=== PATIENT | male | born 1970 | race Caucasian/White ===

== ENCOUNTER 2016-05-12 13:48 | Inpatient (IN) | payer OTHER ==
[~2016-05-12] VITALS: Ht 185.4 cm; Wt 104.9 kg
[~2016-05-12 13:48] MED LIST: PERC5TAB8 OR; PROZ40CA OR; TRAM50TA2 OR
[2016-05-12] MEDS ORDERED: NICOTINE 21MG/24HR 1 EA TRANSDERMAL As Ordered ONE (14:30)
[2016-05-12 14:48] LABS: MEAN CORPUSCULAR HEMOGLOBIN 28.9 pg (27.0-33.0); MEAN CORPUSCULAR HGB CONC 33.5 g/dl (32.0-36.5); MEAN CORPUSCULAR VOLUME 86.5 fl (80.0-96.0); RED CELL DISTRIBUTION WIDTH 12.6 % (11.5-14.5); WHITE BLOOD COUNT 7.5 K/mm3 (4.0-10.0)
[2016-05-12 15:00] LABS: CONTROL LINE INT CTR LINE PRESENT; METHADONE URINE NEGATIVE (NEGATIVE); TRICYCLIC ANTIDEPRESS URINE NEGATIVE (NEGATIVE)
[2016-05-12 15:20] LABS: ALBUMIN 3.9 GM/DL (3.2-5.2); ALBUMIN/GLOBULIN RATIO 1.34 (1.00-1.93); ALKALINE PHOSPHATASE 69 U/L (45-117); ALT/SGPT 21 U/L (12-78); ANION GAP 8 MEQ/L (8-16); AST/SGOT 17 U/L (15-37); BILIRUBIN,DIRECT < 0.1 MG/DL (0.0-0.2); BILIRUBIN,TOTAL 0.2 MG/DL (0.2-1.0); BLOOD UREA NITROGEN 11 MG/DL (7-18); CALCIUM LEVEL 8.5 MG/DL (8.5-10.1); CARBON DIOXIDE LEVEL 28 MEQ/L (21-32); CHLORIDE LEVEL 106 MEQ/L (98-107); CREATININE FOR GFR 0.96 MG/DL (0.70-1.30); GLOMERULAR FILTRATION RATE > 60.0 (>60); GLUCOSE, FASTING 98 MG/DL (70-105); SODIUM LEVEL 142 MEQ/L (136-145); TOTAL PROTEIN 6.8 GM/DL (6.4-8.2)
[2016-05-13] MEDS ORDERED: amLODIPine 5 MG TAB As Ordered ONE (08:20)
[2016-05-13] MEDS ORDERED: LISINOPRIL 10 MG TAB As Ordered ONE (08:20)
[2016-05-13] MEDS ORDERED: ESCITALOPRAM OXALATE 10 MG TAB (LEXAPRO) As Ordered ONE (08:20)
--- NOTE | 2016-05-13 14:56 | EDDOCDS ---
Physician Documentation [facility] Name: Tomás Soares Age: 45 yrs Sex: Male : 1970 Arrival Date: 05/12/2016 Time: 13:48 Bed OBSERVATION Private MD: No Pcp Disposition: 05/13/16 14:56 Hospitalization ordered by Juvencio Sylvester for Inpatient Admission. Preliminary diagnosis is Major depressive disorder, recurrent, unspecified. - Bed requested for Admit. - Status is Inpatient Admission. mk4 - Condition is Stable. Historical: - Allergies: SULFA (SULFONAMIDES); - Home Meds: 1. lisinopril 40 mg Oral tab 1 tab once daily 2. escitalopram oxalate 20 mg oral tab 1 tab once daily 3. amlodipine 5 mg Oral tab 1 tab once daily 4. albuterol sulfate 90 mcg/actuation Inhl HFAA 2 puffs every 4-6 hours 5. Suboxone 8-2 mg SL subl 1 tab once daily (Last dose: 05/12/2016 08:00) - PMHx: Bertrand's Palsy; COPD; Depression; heroin addiction (Clean for 2 years); Hypertension; - PSHx: Cervical Fusion (August 2011); Appendectomy; - Social history: Smoking status: Patient uses tobacco products, heavy tobacco smoker. No barriers to communication noted, The patient speaks fluent Romanian, Speaks appropriately for age. - Family history: Not pertinent. - : The pt / caregiver states he / she is not on anticoagulants. Home medication list is obtained from pill bottles. - Exposure Risk Screening:: None identified. Vital Signs: 05/12 13:51 BP 162 / 87; Pulse 70; Resp 18; Temp 97.4(O); Pulse Ox 97% on R/A; Weight 108.86 kg / jrd 240 lbs (R); Height 6 ft. 1 in. (185.42 cm) (R); Pain 0/10; 19:47 BP 140 / 76; Pulse 62; Resp 16; Temp 96.7(O); Pulse Ox 99% on R/A; slm 05/13 05:09 BP 132 / 77; Pulse 57; Resp 16; Temp 96.2(O); Pulse Ox 96% on R/A; Pain 0/10; slm 14:40 BP 146 / 71; Pulse 61; Resp 18; Temp 98.2; Pulse Ox 98% ; mk4 05/12 13:51 Body Mass Index 31.66 (108.86 kg, 185.42 cm) jrd MDM: 05/12 14:21 Consult PFS/PSA/Distance Learning Administrator ordered. ke 14:21 Consult PFS/PSA/Distance Learning Administrator: Patient's case requires discussion with on-call ke Psychiatrist ordered. 14:21 PSA/PFS to call Nursing Equipment Coordinator, to enter patient data on [place] Safe [place] if patient ke involuntarily admitted or transferred for SI or HI ordered. 14:21 Confirm accurate psychiatric medication list and times of last dosage ordered. ke 14:21 Detain Pt Until Medically/PFS Cleared ordered. ke 14:21 Nicotine Patch 21 mg/24 hr 1 applic Transdermal once ordered. ke 14:22 Acetaminophen Level Ordered. EDMS 14:22 Basic Metabolic Profile Ordered. EDMS 14:22 Complete Blood Count Ordered. EDMS 14:22 Drug Eval Toxicology ED Only Ordered. EDMS 14:22 Ethyl Alcohol (ethanol) Ordered. EDMS 14:22 Liver Profile Ordered. EDMS 14:22 Salicylate Level Ordered. EDMS 14:22 Thyroid Stimulating Hormone Ordered. EDMS 15:29 Acetaminophen Level Reviewed. ke 15:29 Complete Blood Count Reviewed. ke 15:29 Salicylate Level Reviewed. ke 15:29 Thyroid Stimulating Hormone Reviewed. ke 15:29 Basic Metabolic Profile Reviewed. ke 15:29 Drug Eval Toxicology ED Only Reviewed. ke 15:29 Ethyl Alcohol (ethanol) Reviewed. ke 15:29 Liver Profile Reviewed. ke 15:29 Consult PFS/PSA/Distance Learning Administrator complete. ca 15:59 REGULAR DIET PLASTIC PARKER+DIET ordered. EDMS 15:59 Consult PFS/PSA/Distance Learning Administrator: Patient's case requires discussion with on-call ca Psychiatrist complete. 16:00 PSA/PFS to call Nursing Equipment Coordinator, to enter patient data [place] Safe [place] if patient ca involuntarily admitted or transferred for SI or HI complete. 16:16 Financial registration complete. zo 16:19 [facility] [place] into [employer] and attached to record. zo 23:29 The patient has been medically cleared for psychiatric evaluation, admission and/or ke transfer. Awaiting: The patient is awaiting psychiatric admission or transfer. All labs and investigations have been reviewed. The vital signs have been reviewed. The patient remains medically cleared for disposition. Psychiatric assistant professor of history. 05/13 04:55 REGULAR DIET PLASTIC PARKER+DIET ordered. EDMS 07:17 Lisinopril 40 mg PO once ordered. br1 07:17 amLODIPine 5 mg PO once ordered. br1 07:18 Escitalopram 20 mg PO once ordered. br1 07:19 Awaiting: The patient is awaiting psychiatric admission or transfer. All labs and br1 investigations have been reviewed. The vital signs have been reviewed. The patient remains medically cleared for disposition. 10:50 REGULAR DIET PLASTIC PARKER+DIET ordered. EDMS 14:28 Admit to [facility]: ordered. EDMS 14:43 E Legal paperwork was scanned into [employer] and attached to record. lucrecia Administered Medications: 05/12 14:40 Drug: Nicotine 1 applic [nicotine 21 mg/24 hr daily transdermal patch (1 patches)] kc3 Route: Transdermal; Site: right upper arm; 05/13 08:25 Drug: Lisinopril 40 mg [lisinopril 10 mg tablet (4 tabs)] Route: PO; mk4 08:25 Drug: amLODIPine 5 mg [amlodipine 5 mg tablet (1 tabs)] Route: PO; mk4 08:25 Drug: Escitalopram 20 mg Route: PO; mk4 Signatures: Dispatcher [employer] EDMS Santa Yousif, PSA PSA Garret Cortez, PSA PSA Mario Grijalva, FIRE EXTINGUISHER INSTALLER FIRE EXTINGUISHER INSTALLER Tyrone Oliveira RN RN mlb1 Héctor Zhong Brian, MD MD br1 Michelle Lepe RN RN mk4 Avis Ibanez,RN RN kc3 The chart was reviewed and I authenticate all verbal orders and agree with the evaluation and treatment provided.Corrections: (The following items were deleted from the chart) 14:06 05/12 13:56 Home Meds: Suboxone 8-2 mg SL subl 1 tab once daily; gonzalo mk4 Attachments: 16:19 [facility] Payment Agreement zo MTDD
--- NOTE | 2016-05-13 14:57 | EDDOCDS ---
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 Test: BARBITURATES URINE; Value: NEGATIVE; Range: NEGATIVE; Status: F Test: BENZODIAZEPINES URINE; Value: NEGATIVE; Range: NEGATIVE; Status: F Test: CANNABINOIDS URINE; Value: NEGATIVE; Range: NEGATIVE; Status: F Test: COCAINE METABOLITE URINE; Value: NEGATIVE; Range: NEGATIVE; Status: F Test: METHADONE URINE; Value: NEGATIVE; Range: NEGATIVE; Status: F Test: OPIATES URINE; Value: NEGATIVE; Range: NEGATIVE; Status: F Test: TRICYCLIC ANTIDEPRESS URINE; Value: NEGATIVE; Range: NEGATIVE; Status: F Test Note: ; ALL PRESUMPTIVE POSITIVE FINDINGS ARE UNCONFIRMED NORMAL VALUES THRESHOLD IN NG/ML AMPHETAMINES 1000 METHAMPHETAMINES 1000 BARBITURATES 300 BENZODIAZEPINES 300 CANNABINOIDS (THC) 50 COCAINE METABOLITE 300 METHADONE 300 OPIATES 300 PHENCYCLIDINE 25 TRICYCLIC ANTIDEPRESSANTS 1000 RESULTS ARE FOR MEDICAL PURPOSES ONLY. ALL URINE SPECIMENS WILL BE SAVED FOR 3 DAYS. IF CONFIRMATION OF A PRESUMPTIVE POSTIVE SCREEN RESULT IS DESIRED, CALL CHEMISTRY ([phone]) AND REQUEST URINE TO BE SENT TO REFERENCE LAB. FOR A LIST OF CLOSELY RELATED COMPOUNDS PLEASE CALL THE LAB. Lab Order: Ethyl Alcohol (ethanol); SPEC'M 05/12/16 14:36 Test: ETHYL ALCOHOL (ETHANOL); Value: 0.003; Range: 0.000-0.010; Units: %; Status: F Lab Order: Liver Profile; SPEC'M 05/12/16 14:36 Test: AST/SGOT; Value: 17; Range: 15-37; Units: U/L; Status: F Test: ALT/SGPT; Value: 21; Range: 12-78; Units: U/L; Status: F Test: ALKALINE PHOSPHATASE; Value: 69; Range: 45-117; Units: U/L; Status: F Test: BILIRUBIN,TOTAL; Value: 0.2; Range: 0.2-1.0; Units: MG/DL; Status: F Test: BILIRUBIN,DIRECT; Value: < 0.1; Range: 0.0-0.2; Units: MG/DL; Status: F Test: TOTAL PROTEIN; Value: 6.8; Range: 6.4-8.2; Units: GM/DL; Status: F Test: ALBUMIN; Value: 3.9; Range: 3.2-5.2; Units: GM/DL; Status: F Test: ALBUMIN/GLOBULIN RATIO; Value: 1.34; Range: 1.00-1.93; Status: F Lab Order: Salicylate Level; SPEC'M 05/12/16 14:36 Test: SALICYLATE LEVEL; Value: 3.8; Range: 5.0-30.0; Abnormal: Below low normal; Units: MG/DL; Status: F Lab Order: Thyroid Stimulating Hormone; SPEC'M 05/12/16 14:36 Test: THYROID STIMULATING HORMONE; Value: 0.175; Range: 0.358-3.740; Abnormal: Below low normal; Units: uIU/ML; Status: F Outcome: 05/12 22:31 No special radiology studies were completed. [facility] 05/13 11:00 Discharge Assessment: Patient awake, alert and oriented x 3. No cognitive and/or mk4 functional deficits noted. Patient verbalized understanding of disposition instructions. Patient awake and alert. Discharge Assessment: patient administered narcotics - no. The following High Risk Discharge criteria are identified: None. Admitted to Psych accompanied by tech, via wheelchair, with chart. Condition: good Condition: stable. 14:56 Decision to Hospitalize by Provider. mk4 14:56 Patient left the ED. mk4 Signatures: Makayla Rachel RN RN kmg1 Johnson, Bruce, RN RN bcj Anderson, Cathy, PSA PSA ca Baxter, Renee, ARGENIS PSA Garret Rodriguez, PSA PSA Jose Eduardo [place] Security Aide Securpjf Ventura, Mario Darden, HEALTH ACTUARY HEALTH ACTUARY Tyrone Oliveira RN RN mlb1 Héctor Zhong Brian, MD MD br1 Harvindre De La O dpLinda José,BRICK YARD HAND BRICK YARD HAND slm Michelle Lepe, RN RN mk4 Yaniv Robb, TAIL EDGER TAIL EDGER jrd Avis IbanezRN RN kc3 Corrections: (The following items were deleted from the chart) 14:06 05/12 13:56 Home Meds: Suboxone 8-2 mg SL subl 1 tab once daily; mlb1 mk4 MTDD
[2016-05-13 15:08] VITALS: BP 133/75
[2016-05-13] MEDS ORDERED: traZODone 50 MG TAB PO PRN (16:00)
[2016-05-13] MEDS ORDERED: MOM 30ML SUSPENSION UDC PO PRN (16:00)
[2016-05-13] MEDS ORDERED: ACETAMINOPHEN TAB 650MG DOSE (2X325MG) PO PRN (16:00)
[2016-05-13] MEDS ORDERED: MAALOX 30 ML SUSP *UDC PO PRN (16:00)
[2016-05-13] MEDS ORDERED: ALBUTEROL 90 MCG/ACT 8GM HFA INHALER INH PRN (16:30)
[2016-05-13] MEDS: BUPRENORPHINE/NALOXONE 8-2MG SUBLINGUAL TABLET(SUBOXONE) SL SCH (16:40)
[2016-05-13] MEDS: NICOTINE 21MG/24HR 1 EA TRANSDERMAL TD SCH (16:40)
[2016-05-14 06:40] VITALS: BP 116/65
[2016-05-14] MEDS: NICOTINE 21MG/24HR 1 EA TRANSDERMAL TD SCH (08:49)
[2016-05-14] MEDS: BUPRENORPHINE/NALOXONE 8-2MG SUBLINGUAL TABLET(SUBOXONE) SL SCH (08:49)
[2016-05-14] MEDS: ESCITALOPRAM OXALATE 10 MG TAB (LEXAPRO) PO SCH (08:49)
[2016-05-14] MEDS: amLODIPine 5 MG TAB PO SCH (08:49)
[2016-05-14] MEDS: LISINOPRIL 40 MG TAB PO SCH (08:49)
--- NOTE | 2016-05-14 10:35 | HPEPDOC ---
Medical History and Physical Date of Admission May 13, 2016 at 14:55 History and Physical PCP: Dr Lakesha Fairchild- [facility]. ATTENDING: Dr. Elvin Griffiths HPI:45yoM admitted to [facility] for MDD, being medically examined today. No acute medical complaints today. Denies any fevers, chills, weakness, fatigue, [place], CP, SOB, cough, palpitations, abdominal pain, N/V/D or changes in bowel or bladder habits. PMHx: COPD Bertrand's palsy Depression Hypertension H/O Substance use-Suboxone as per Dr Fairchild. ISTOP reference # [id number] PSHX: Cervical fusion 08/26- Dr Rosado Appendectomy SOCHX: Resides in: [place] Marital Status: Kids: 6 Employment: Unemployed Tobacco use: One pack per day ETOH: Denies Illicit Drugs: History of cocaine, heroin. Patient states quit 2013 IV Drug Use: Heroin Tattoos done unprofessionally: Denies HIV/hepatitis screening 2013. Negative per patient. FAMHX: Mother: Alive, well Father: Alive, unknown Siblings: One brother, one sister Alive, well Children: Alive, asthma Unexpected deaths due to medical reasons: None. ROS: As noted in HPI, otherwise 11pt ROS of systems reviewed and unremarkable PE: GEN: 45yoM, appears stated age. Well-nourished, well developed. No acute distress. Alert and oriented x 3. Pleasant, interactive. HEENT: Normocephalic, atraumatic. Pupils are equal, round, and reactive to light. Extraocular movements are intact. No nystagmus appreciated. Sclera are nonicteric. Conjunctiva without injection. Nose midline. Nasal turbinates without bogginess. EACs both patent BL. TMs both visualized and redman with good cone of light, no bulging or erythema. No facial asymmetry. Moist mucous membranes. Dentition fair. Pharynx pink and moist, no cobblestoning. Neck supple , trachea midline. No lymphadenopathy or thyromegaly appreciated. CHEST: Regular rate and rhythm, +S1, +S2 LUNGS: Clear to auscultation bilaterally. No wheezes, rales, or rhonchi. Breathing appears symmetric and easy. Patient is speaking in full sentences. No accessory muscle use. ABD: Round, soft, non-tender, non-distended. +Bowel sounds throughout. No rebound or guarding. No costovertebral angle tenderness. EXT: Pulses 2+ bilaterally dorsalis pedis and radial. No lower extremity edema appreciated. SKIN: Tok, dry, warm. Capillary refill <2sec. No rashes. NEURO: Alert and oriented x 3. Cranial nerves III-XII are intact. No focal deficits appreciated. EKG: pending. A&P: 45yoM admitted to [facility] for MDD 1. Psych. Plan per Psychiatry. Obtain baseline EKG to assure the safety of psychiatric medications as they can prolong the QT interval. 2. Nicotine dependence. Patch available. 3. Hypertension. Continue lisinopril 40 mg daily, amlodipine 5 mg daily. 4. Follow up with PCP on discharge. 5. H/O Substance use. Per psychiatry. Patient remains on Suboxone 8-2 milligrams sublingual daily. ISTOP reference #[id number] indicates last filled date of 04/25/16 dispensed #30. 6. COPD. Continue albuterol 2 puffs every 4 hours as needed. 7. Abnormal TSH. Recheck TSH and free T4 in a.m. 8. Staff member present at exam, [employer] Ed. Vital Signs Vital Signs Label Value Date Time Patient Temperature 96.0 degrees F 05/14/16 0640 Temperature Source Tympanic 05/14/16 0640 Pulse 52 05/14/16 0640 Respiratory Rate 16 bpm 05/14/16 0640 Blood Pressure Assessment 116/65 (82) 05/14/16 0640 Laboratory Data Labs 24H Item Value Date Time White Blood Count 7.5 K/mm3 05/12/16 1436 Red Blood Count 4.77 M/mm3 05/12/16 1436 Hemoglobin 13.8 g/dl L 05/12/16 1436 Hematocrit 41.3 % L 05/12/16 1436 Mean Corpuscular Volume 86.5 fl 05/12/16 1436 Mean Corpuscular Hemoglobin 28.9 pg 05/12/16 1436 Mean Corpuscular Hemoglobin Concent 33.5 g/dl 05/12/16 1436 Red Cell Distribution Width 12.6 % 05/12/16 1436 Platelet Count 263 k/mm3 05/12/16 1436 Sodium Level 142 MEQ/L 05/12/16 1436 Potassium Level 4.0 MEQ/L 05/12/16 1436 Chloride Level 106 MEQ/L 05/12/16 1436 Carbon Dioxide Level 28 MEQ/L 05/12/16 1436 Anion Gap 8 MEQ/L 05/12/16 1436 Blood Urea Nitrogen 11 MG/DL 05/12/16 1436 Creatinine 0.96 MG/DL 05/12/16 1436 Glomerular Filtration Rate > 60.0 05/12/16 1436 Fasting Glucose 98 MG/DL 05/12/16 1436 Calcium Level 8.5 MG/DL 05/12/16 1436 Total Bilirubin 0.2 MG/DL 05/12/16 1436 Direct Bilirubin < 0.1 MG/DL 05/12/16 1436 Aspartate Amino Transf (AST/SGOT) 17 U/L 05/12/16 1436 Alanine Aminotransferase (ALT/SGPT) 21 U/L 05/12/16 1436 Alkaline Phosphatase 69 U/L 05/12/16 1436 Total Protein 6.8 GM/DL 05/12/16 1436 Albumin 3.9 GM/DL 05/12/16 1436 Albumin/Globulin Ratio 1.34 05/12/16 1436 Thyroid Stimulating Hormone (TSH) 0.175 uIU/ML L 05/12/16 1436 Salicylates Level 3.8 MG/DL L 05/12/16 1436 Urine Opiates Screen NEGATIVE 05/12/16 1439 Urine Methadone Screen NEGATIVE 05/12/16 1439 Acetaminophen Level < 2.0 UG/ML L 05/12/16 1436 Urine Barbiturates Screen NEGATIVE 05/12/16 1439 Urine Tricyclic Antidepressants NEGATIVE 05/12/16 1439 Urine Amphetamines Screen NEGATIVE 05/12/16 1439 Urine Benzodiazepines Screen NEGATIVE 05/12/16 1439 Urine Cocaine Metabolite Screen NEGATIVE 05/12/16 1439 Urine Cannabinoids Screen NEGATIVE 05/12/16 1439 Ethyl Alcohol Level 0.003 % 05/12/16 1436 Home Medications Scheduled Fluoxetine Hcl (Prozac) 40 Mg Cap 30 MG OR DAILY Oxycodone/Acetaminophen (Percocet) 1 Tab Tab 1 TAB OR Q4HP Tramadol Hcl (Tramadol Hcl) 50 Mg Tab 50 MG OR Q8HP Allergies Coded Allergies: No Known Allergies (Verified , 09/20/02) Flaquita Garcia May 14, 2016 10:34
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
[2016-05-14 18:00] VITALS: BP 121/66
--- NOTE | 2016-05-14 22:39 | ECGEPIP ---
Stationary ECG Study [facility] Test Date: 2016-05-14 Pat Name: MEI FERRIS Department: Room: [place] [address] Gender: M Director Of Channel Marketing: MARICRUZ : 1970 Requested By: Flaquita Garcia Order Number: [id number] Reading MD: Elvin Griffiths Measurements Intervals [place] Rate: 62 P: 69 DE: 164 QRS: -29 QRSD: 110 T: 31 QT: 388 QTc: 396 Interpretive Statements SINUS RHYTHM Intraventricular conduction delay BORDERLINE LEFT AXIS DEVIATION Nonspecific ST-T wave abnormalities No significant change when compared to prior tracing of 08-15-15 Electronically Signed On 05-14-2016 22:38:58 EST by Elvin Griffiths
[2016-05-15 06:35] VITALS: BP 134/71
[2016-05-15 07:19] LABS: FREE T4 0.92 NG/DL (0.76-1.46)
[2016-05-15] MEDS ORDERED: NICO21PAT TD (08:29)
[2016-05-15 08:36] VITALS: BP 127/74
[2016-05-15] MEDS: BUPRENORPHINE/NALOXONE 8-2MG SUBLINGUAL TABLET(SUBOXONE) SL SCH (08:36)
[2016-05-15] MEDS: NICOTINE 21MG/24HR 1 EA TRANSDERMAL TD SCH (08:36)
[2016-05-15] MEDS: LISINOPRIL 40 MG TAB PO SCH (08:36)
[2016-05-15] MEDS: ESCITALOPRAM OXALATE 10 MG TAB (LEXAPRO) PO SCH (08:36)
[2016-05-15] MEDS: amLODIPine 5 MG TAB PO SCH (08:36)
[2016-05-15] MEDS ORDERED: SUBO8MIS SL (12:29)
[2016-05-15] MEDS ORDERED: LEXA1TAB2 PO (12:29)
[2016-05-15] MEDS ORDERED: NORV5TAB PO (12:29)
[2016-05-15] MEDS ORDERED: PRINIVIL PO (12:29)
[2016-05-15] MEDS ORDERED: ALBU17IN INH (12:29)
--- NOTE | 2016-05-15 15:57 | EDDOCDS ---
Physician Documentation [facility] Name: Tomás Soares Age: 45 yrs Sex: Male : 1970 Arrival Date: 05/12/2016 Time: 13:48 Bed OBSERVATION Private MD: No Pcp Disposition: 05/13/16 14:56 Hospitalization ordered by Juvencio Sylvester for Inpatient Admission. Preliminary diagnosis is Major depressive disorder, recurrent, unspecified. - Bed requested for Admit. - Status is Inpatient Admission. mk4 - Condition is Stable. Historical: - Allergies: SULFA (SULFONAMIDES); - Home Meds: 1. lisinopril 40 mg Oral tab 1 tab once daily 2. escitalopram oxalate 20 mg oral tab 1 tab once daily 3. amlodipine 5 mg Oral tab 1 tab once daily 4. albuterol sulfate 90 mcg/actuation Inhl HFAA 2 puffs every 4-6 hours 5. Suboxone 8-2 mg SL subl 1 tab once daily (Last dose: 05/12/2016 08:00) - PMHx: Bertrand's Palsy; COPD; Depression; heroin addiction (Clean for 2 years); Hypertension; - PSHx: Cervical Fusion (August 2011); Appendectomy; - Social history: Smoking status: Patient uses tobacco products, heavy tobacco smoker. No barriers to communication noted, The patient speaks fluent Surinamese, Speaks appropriately for age. - Family history: Not pertinent. - : The pt / caregiver states he / she is not on anticoagulants. Home medication list is obtained from pill bottles. - Exposure Risk Screening:: None identified. Vital Signs: 05/12 13:51 BP 162 / 87; Pulse 70; Resp 18; Temp 97.4(O); Pulse Ox 97% on R/A; Weight 108.86 kg / jrd 240 lbs (R); Height 6 ft. 1 in. (185.42 cm) (R); Pain 0/10; 19:47 BP 140 / 76; Pulse 62; Resp 16; Temp 96.7(O); Pulse Ox 99% on R/A; slm 05/13 05:09 BP 132 / 77; Pulse 57; Resp 16; Temp 96.2(O); Pulse Ox 96% on R/A; Pain 0/10; slm 14:40 BP 146 / 71; Pulse 61; Resp 18; Temp 98.2; Pulse Ox 98% ; mk4 05/12 13:51 Body Mass Index 31.66 (108.86 kg, 185.42 cm) jrd MDM: 05/12 14:21 Consult PFS/PSA/Computer Graphic Artist ordered. ke 14:21 Consult PFS/PSA/Computer Graphic Artist: Patient's case requires discussion with on-call ke Psychiatrist ordered. 14:21 PSA/PFS to call Nursing Lead Level Designer, to enter patient data on [place] Safe Act if patient ke involuntarily admitted or transferred for SI or HI ordered. 14:21 Confirm accurate psychiatric medication list and times of last dosage ordered. ke 14:21 Detain Pt Until Medically/PFS Cleared ordered. ke 14:21 Nicotine Patch 21 mg/24 hr 1 applic Transdermal once ordered. ke 14:22 Acetaminophen Level Ordered. EDMS 14:22 Basic Metabolic Profile Ordered. EDMS 14:22 Complete Blood Count Ordered. EDMS 14:22 Drug Eval Toxicology ED Only Ordered. EDMS 14:22 Ethyl Alcohol (ethanol) Ordered. EDMS 14:22 Liver Profile Ordered. EDMS 14:22 Salicylate Level Ordered. EDMS 14:22 Thyroid Stimulating Hormone Ordered. EDMS 15:29 Acetaminophen Level Reviewed. ke 15:29 Complete Blood Count Reviewed. ke 15:29 Salicylate Level Reviewed. ke 15:29 Thyroid Stimulating Hormone Reviewed. ke 15:29 Basic Metabolic Profile Reviewed. ke 15:29 Drug Eval Toxicology ED Only Reviewed. ke 15:29 Ethyl Alcohol (ethanol) Reviewed. ke 15:29 Liver Profile Reviewed. ke 15:29 Consult PFS/PSA/Computer Graphic Artist complete. ca 15:59 REGULAR DIET PLASTIC PARKER+DIET ordered. EDMS 15:59 Consult PFS/PSA/Computer Graphic Artist: Patient's case requires discussion with on-call ca Psychiatrist complete. 16:00 PSA/PFS to call Nursing Lead Level Designer, to enter patient data on [place] Safe [place] if patient ca involuntarily admitted or transferred for SI or HI complete. 16:16 Financial registration complete. zo 16:19 [facility] Payment Agreement was scanned into [employer] and attached to record. zo 23:29 The patient has been medically cleared for psychiatric evaluation, admission and/or ke transfer. Awaiting: The patient is awaiting psychiatric admission or transfer. All labs and investigations have been reviewed. The vital signs have been reviewed. The patient remains medically cleared for disposition. Psychiatric airplane inspector. 05/13 04:55 REGULAR DIET PLASTIC PARKER+DIET ordered. EDMS 07:17 Lisinopril 40 mg PO once ordered. br1 07:17 amLODIPine 5 mg PO once ordered. br1 07:18 Escitalopram 20 mg PO once ordered. br1 07:19 Awaiting: The patient is awaiting psychiatric admission or transfer. All labs and br1 investigations have been reviewed. The vital signs have been reviewed. The patient remains medically cleared for disposition. 10:50 REGULAR DIET PLASTIC PARKER+DIET ordered. EDMS 14:28 Admit to [facility]: ordered. EDMS 14:43 E Legal paperwork was scanned into [employer] and attached to record. lucrecia Administered Medications: 05/12 14:40 Drug: Nicotine 1 applic [nicotine 21 mg/24 hr daily transdermal patch (1 patches)] kc3 Route: Transdermal; Site: right upper arm; 05/13 08:25 Drug: Lisinopril 40 mg [lisinopril 10 mg tablet (4 tabs)] Route: PO; mk4 08:25 Drug: amLODIPine 5 mg [amlodipine 5 mg tablet (1 tabs)] Route: PO; mk4 08:25 Drug: Escitalopram 20 mg Route: PO; mk4 Signatures: Dispatcher [employer] EDMS Santa Yousif, PSA PSA Garret Cortez, PSA PSA Mario Grijalva, SHOE REPAIR COBBLER SHOE REPAIR COBBLER Tryone Oliveira RN RN mlb1 Héctor Zhong Brian, MD MD br1 Michelle Lepe RN RN mk4 Avis Ibanez,RN RN kc3 The chart was reviewed and I authenticate all verbal orders and agree with the evaluation and treatment provided.Corrections: (The following items were deleted from the chart) 14:06 05/12 13:56 Home Meds: Suboxone 8-2 mg SL subl 1 tab once daily; gonzalo mk4 Attachments: 16:19 [facility] Payment Agreement zo Chart Complete MTDD
--- NOTE | 2016-05-15 15:57 | EDDOCDS ---
Physician Documentation [facility] Name: Tomás Soares Age: 45 yrs Sex: Male : 1970 Arrival Date: 05/12/2016 Time: 13:48 Bed OBSERVATION Private MD: No Pcp Disposition: 05/13/16 14:56 Hospitalization ordered by Juvencio Sylvester for Inpatient Admission. Preliminary diagnosis is Major depressive disorder, recurrent, unspecified. - Bed requested for Admit. - Status is Inpatient Admission. mk4 - Condition is Stable. Historical: - Allergies: SULFA (SULFONAMIDES); - Home Meds: 1. lisinopril 40 mg Oral tab 1 tab once daily 2. escitalopram oxalate 20 mg oral tab 1 tab once daily 3. amlodipine 5 mg Oral tab 1 tab once daily 4. albuterol sulfate 90 mcg/actuation Inhl HFAA 2 puffs every 4-6 hours 5. Suboxone 8-2 mg SL subl 1 tab once daily (Last dose: 05/12/2016 08:00) - PMHx: Bertrand's Palsy; COPD; Depression; heroin addiction (Clean for 2 years); Hypertension; - PSHx: Cervical Fusion (August 2011); Appendectomy; - Social history: Smoking status: Patient uses tobacco products, heavy tobacco smoker. No barriers to communication noted, The patient speaks fluent [place], Speaks appropriately for age. - Family history: Not pertinent. - : The pt / caregiver states he / she is not on anticoagulants. Home medication list is obtained from pill bottles. - Exposure Risk Screening:: None identified. Vital Signs: 05/12 13:51 BP 162 / 87; Pulse 70; Resp 18; Temp 97.4(O); Pulse Ox 97% on R/A; Weight 108.86 kg / jrd 240 lbs (R); Height 6 ft. 1 in. (185.42 cm) (R); Pain 0/10; 19:47 BP 140 / 76; Pulse 62; Resp 16; Temp 96.7(O); Pulse Ox 99% on R/A; slm 05/13 05:09 BP 132 / 77; Pulse 57; Resp 16; Temp 96.2(O); Pulse Ox 96% on R/A; Pain 0/10; slm 14:40 BP 146 / 71; Pulse 61; Resp 18; Temp 98.2; Pulse Ox 98% ; mk4 05/12 13:51 Body Mass Index 31.66 (108.86 kg, 185.42 cm) jrd MDM: 05/12 14:21 Consult PFS/PSA/Firebreak Cutter ordered. ke 14:21 Consult PFS/PSA/Firebreak Cutter: Patient's case requires discussion with on-call ke Psychiatrist ordered. 14:21 PSA/PFS to call Nursing Respiratory Care Assistant, to enter patient data on [place] Safe [place] if patient ke involuntarily admitted or transferred for SI or HI ordered. 14:21 Confirm accurate psychiatric medication list and times of last dosage ordered. ke 14:21 Detain Pt Until Medically/PFS Cleared ordered. ke 14:21 Nicotine Patch 21 mg/24 hr 1 applic Transdermal once ordered. ke 14:22 Acetaminophen Level Ordered. EDMS 14:22 Basic Metabolic Profile Ordered. EDMS 14:22 Complete Blood Count Ordered. EDMS 14:22 Drug Eval Toxicology ED Only Ordered. EDMS 14:22 Ethyl Alcohol (ethanol) Ordered. EDMS 14:22 Liver Profile Ordered. EDMS 14:22 Salicylate Level Ordered. EDMS 14:22 Thyroid Stimulating Hormone Ordered. EDMS 15:29 Acetaminophen Level Reviewed. ke 15:29 Complete Blood Count Reviewed. ke 15:29 Salicylate Level Reviewed. ke 15:29 Thyroid Stimulating Hormone Reviewed. ke 15:29 Basic Metabolic Profile Reviewed. ke 15:29 Drug Eval Toxicology ED Only Reviewed. ke 15:29 Ethyl Alcohol (ethanol) Reviewed. ke 15:29 Liver Profile Reviewed. ke 15:29 Consult PFS/PSA/Firebreak Cutter complete. ca 15:59 REGULAR DIET PLASTIC PARKER+DIET ordered. EDMS 15:59 Consult PFS/PSA/Firebreak Cutter: Patient's case requires discussion with on-call ca Psychiatrist complete. 16:00 PSA/PFS to call Nursing Respiratory Care Assistant, to enter patient data [place] Safe [place] if patient ca involuntarily admitted or transferred for SI or HI complete. 16:16 Financial registration complete. zo 16:19 [facility] [place] was [place] into [employer] and attached to record. zo 23:29 The patient has been medically cleared for psychiatric evaluation, admission and/or ke transfer. Awaiting: The patient is awaiting psychiatric admission or transfer. All labs and investigations have been reviewed. The vital signs have been reviewed. The patient remains medically cleared for disposition. 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 05/13 04:55 REGULAR DIET PLASTIC PARKER+DIET ordered. EDMS 07:17 Lisinopril 40 mg PO once ordered. br1 07:17 amLODIPine 5 mg PO once ordered. br1 07:18 Escitalopram 20 mg PO once ordered. br1 07:19 Awaiting: The patient is awaiting psychiatric admission or transfer. All labs and br1 investigations have been reviewed. The vital signs have been reviewed. The patient remains medically cleared for disposition. 10:50 REGULAR DIET PLASTIC PARKER+DIET ordered. EDMS 14:28 Admit to [facility]: ordered. EDMS 14:43 E Legal paperwork was scanned into [employer] and attached to record. lucrecia Administered Medications: 05/12 14:40 Drug: Nicotine 1 applic [nicotine 21 mg/24 hr daily transdermal patch (1 patches)] kc3 Route: Transdermal; Site: right upper arm; 05/13 08:25 Drug: Lisinopril 40 mg [lisinopril 10 mg tablet (4 tabs)] Route: PO; mk4 08:25 Drug: amLODIPine 5 mg [amlodipine 5 mg tablet (1 tabs)] Route: PO; mk4 08:25 Drug: Escitalopram 20 mg Route: PO; mk4 Signatures: Dispatcher [employer] EDMS Santa Yousif, PSA PSA Garret Cortez, PSA PSA Mario Grijalva, ADDING MACHINE SERVICER ADDING MACHINE SERVICER Tyrone Oliveira RN RN mlb1 Héctor Zhong Brian, MD MD br1 Michelle Lepe RN RN mk4 Avis Ibanez,RN RN kc3 The chart was reviewed and I authenticate all verbal orders and agree with the evaluation and treatment provided.Corrections: (The following items were deleted from the chart) 14:06 05/12 13:56 Home Meds: Suboxone 8-2 mg SL subl 1 tab once daily; gonzalo mk4 Attachments: 16:19 [facility] Payment Agreement zo Chart Complete MTDD
--- NOTE | 2016-05-15 15:57 | EDDOCDS ---
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 AMPHETAMINES LEVEL URINE; Value: NEGATIVE; Range: NEGATIVE; Status: F Test: BARBITURATES URINE; Value: NEGATIVE; Range: NEGATIVE; Status: F Test: BENZODIAZEPINES URINE; Value: NEGATIVE; Range: NEGATIVE; Status: F Test: CANNABINOIDS URINE; Value: NEGATIVE; Range: NEGATIVE; Status: F Test: COCAINE METABOLITE URINE; Value: NEGATIVE; Range: NEGATIVE; Status: F Test: METHADONE URINE; Value: NEGATIVE; Range: NEGATIVE; Status: F Test: OPIATES URINE; Value: NEGATIVE; Range: NEGATIVE; Status: F Test: TRICYCLIC ANTIDEPRESS URINE; Value: NEGATIVE; Range: NEGATIVE; Status: F Test Note: ; ALL PRESUMPTIVE POSITIVE FINDINGS ARE UNCONFIRMED NORMAL VALUES THRESHOLD IN NG/ML AMPHETAMINES 1000 METHAMPHETAMINES 1000 BARBITURATES 300 BENZODIAZEPINES 300 CANNABINOIDS (THC) 50 COCAINE METABOLITE 300 METHADONE 300 OPIATES 300 PHENCYCLIDINE 25 TRICYCLIC ANTIDEPRESSANTS 1000 RESULTS ARE FOR MEDICAL PURPOSES ONLY. ALL URINE SPECIMENS WILL BE SAVED FOR 3 DAYS. IF CONFIRMATION OF A PRESUMPTIVE POSTIVE SCREEN RESULT IS DESIRED, CALL CHEMISTRY ([phone]) AND REQUEST URINE TO BE SENT TO REFERENCE LAB. FOR A LIST OF CLOSELY RELATED COMPOUNDS PLEASE CALL THE LAB. Lab Order: Ethyl Alcohol (ethanol); SPEC'M 05/12/16 14:36 Test: ETHYL ALCOHOL (ETHANOL); Value: 0.003; Range: 0.000-0.010; Units: %; Status: F Lab Order: Liver Profile; SPEC'M 05/12/16 14:36 Test: AST/SGOT; Value: 17; Range: 15-37; Units: U/L; Status: F Test: ALT/SGPT; Value: 21; Range: 12-78; Units: U/L; Status: F Test: ALKALINE PHOSPHATASE; Value: 69; Range: 45-117; Units: U/L; Status: F Test: BILIRUBIN,TOTAL; Value: 0.2; Range: 0.2-1.0; Units: MG/DL; Status: F Test: BILIRUBIN,DIRECT; Value: < 0.1; Range: 0.0-0.2; Units: MG/DL; Status: F Test: TOTAL PROTEIN; Value: 6.8; Range: 6.4-8.2; Units: GM/DL; Status: F Test: ALBUMIN; Value: 3.9; Range: 3.2-5.2; Units: GM/DL; Status: F Test: ALBUMIN/GLOBULIN RATIO; Value: 1.34; Range: 1.00-1.93; Status: F Lab Order: Salicylate Level; SPEC'M 05/12/16 14:36 Test: SALICYLATE LEVEL; Value: 3.8; Range: 5.0-30.0; Abnormal: Below low normal; Units: MG/DL; Status: F Lab Order: Thyroid Stimulating Hormone; SPEC'M 05/12/16 14:36 Test: THYROID STIMULATING HORMONE; Value: 0.175; Range: 0.358-3.740; Abnormal: Below low normal; Units: uIU/ML; Status: F Outcome: 05/12 22:31 No special radiology studies were completed. [facility] 05/13 11:00 Discharge Assessment: Patient awake, alert and oriented x 3. No cognitive and/or mk4 functional deficits noted. Patient verbalized understanding of disposition instructions. Patient awake and alert. Discharge Assessment: patient administered narcotics - no. The following High Risk Discharge criteria are identified: None. Admitted to Psych accompanied by tech, via wheelchair, with chart. Condition: good Condition: stable. 14:56 Decision to Hospitalize by Provider. mk4 14:56 Patient left the ED. mk4 Signatures: Makayla Rachel RN RN kmg1 Johnson, Bruce, RN RN bcj Anderson, Cathy, PSA PSA ca Baxter, Renee, ARGENIS PSA Garret Rodriguez, PSA PSA Jose Eduardo [place] Security Aide Christopher Ventura, Mario Darden, CUSTODIAL FOREMAN CUSTODIAL FOREMAN Tyrone Oliveira RN RN mlb1 Héctor Zhong Brian, MD MD br1 Harvinder De La O dpm Linda Rosen,BELTING CUTTER BELTING CUTTER slm Michelle Lepe, RN RN mk4 Yaniv Robb, ANESTHESIOLOGY PHYSICIAN ANESTHESIOLOGY PHYSICIAN jrd Avis IbanezRN RN kc3 Corrections: (The following items were deleted from the chart) 14:06 05/12 13:56 Home Meds: Suboxone 8-2 mg SL subl 1 tab once daily; mlb1 mk4 Chart Complete MTDD
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
== END 2016-05-15 12:45 | disposition home or self-care (01) | DRG 754 ==
LOC: M ED 13:48 → M PSY 14:54
PROVIDERS: ADMIT Psychiatry & Neurology Psychiatry; ATTEND Psychiatry & Neurology Psychiatry
DX: F32.9 Major depressive disorder, single episode, unspecified (principal); J44.9 Chronic obstructive pulmonary disease, unspecified; I10 Essential (primary) hypertension; F11.21 Opioid dependence, in remission; G51.0 Bell's palsy; F17.200 Nicotine dependence, unspecified, uncomplicated

== ENCOUNTER → 2017-05-02 | Outpatient (CLI) | payer OTHER ==
[2017-05-02 19:51] LABS: HEMATOCRIT 42.1 % (42.0-52.0); MEAN CORPUSCULAR HEMOGLOBIN 27.9 pg (27.0-33.0); MEAN CORPUSCULAR HGB CONC 33.3 g/dl (32.0-36.5); PLATELET COUNT, AUTOMATED 311 10^3/uL (150-450); RED BLOOD COUNT 5.01 10^6/uL (4.30-6.10); RED CELL DISTRIBUTION WIDTH 12.7 % (11.5-14.5); WHITE BLOOD COUNT 7.4 10^3/uL (4.0-10.0)
[2017-05-02 20:22] LABS: ALBUMIN 3.9 GM/DL (3.2-5.2); ALBUMIN/GLOBULIN RATIO 1.22 (1.00-1.93); ALKALINE PHOSPHATASE 86 U/L (45-117); ALT/SGPT 28 U/L (12-78); ANION GAP 8 MEQ/L (8-16); AST/SGOT 18 U/L (7-37); BILIRUBIN,TOTAL 0.3 MG/DL (0.2-1.0); BLOOD UREA NITROGEN 13 MG/DL (7-18); CALCIUM LEVEL 8.7 MG/DL (8.5-10.1); CARBON DIOXIDE LEVEL 32 MEQ/L (21-32); CHLORIDE LEVEL 103 MEQ/L (98-107); CREATININE FOR GFR 0.94 MG/DL (0.70-1.30); GLOMERULAR FILTRATION RATE > 60.0 (>60); GLUCOSE, FASTING 126 MG/DL (70-100); POTASSIUM SERUM 4.6 MEQ/L (3.5-5.1); SODIUM LEVEL 143 MEQ/L (136-145); TOTAL PROTEIN 7.1 GM/DL (6.4-8.2)
[2017-05-05 12:25] LABS: HIV 1&2 SCREEN CENTAUR NEGATIVE (NEGATIVE)
[2017-05-05 13:00] LABS: HEPATITIS C VIRUS ABY INDEX > 11.0 INDEX (<0.8)
[2017-05-08 14:12] LABS: HCV RNA NAA QUALITATIVE Positive (Negative)
== END ==
LOC: M WUC 18:35
DX: F11.20 Opioid dependence, uncomplicated (principal); I10 Essential (primary) hypertension
CPT/HCPCS: 80053

== ENCOUNTER → 2017-12-04 | Outpatient (REF) | payer MEDICAID ==
[2017-12-04 15:05] LABS: ALBUMIN/GLOBULIN RATIO 1.21 (1.00-1.93); ALKALINE PHOSPHATASE 69 U/L (45-117); ALT/SGPT 69 U/L (12-78); ANION GAP 7 MEQ/L (8-16); AST/SGOT 30 U/L (7-37); BILIRUBIN,TOTAL 0.6 MG/DL (0.2-1.0); BLOOD UREA NITROGEN 13 MG/DL (7-18); CALCIUM LEVEL 8.6 MG/DL (8.5-10.1); CARBON DIOXIDE LEVEL 28 MEQ/L (21-32); CHLORIDE LEVEL 105 MEQ/L (98-107); CHOLESTEROL LEVEL 156 MG/DL (<200); CHOLESTEROL RISK RATIO 4.875 (<5); CREATININE FOR GFR 0.98 MG/DL (0.70-1.30); GLOMERULAR FILTRATION RATE > 60.0 (>60); GLUCOSE, FASTING 147 MG/DL (70-100); HDL CHOLESTEROL 32 MG/DL (>40); LDL CHOLESTEROL 86 MG/DL (<100); NON-HDL-C 124 MG/DL; POTASSIUM SERUM 4.5 MEQ/L (3.5-5.1); SODIUM LEVEL 140 MEQ/L (136-145); TOTAL PROTEIN 7.3 GM/DL (6.4-8.2); TRIGLYCERIDES LEVEL 190 MG/DL (<150)
[2017-12-04 15:33] LABS: ESTIMATED AVERAGE GLUCOSE 117 MG/DL (60-110); HEMOGLOBIN A1c 5.7 %
[2017-12-05 13:24] LABS: HEPATITIS C VIRUS ABY INDEX > 11.0 INDEX (<0.8)
[2017-12-08 08:20] LABS: HCV RNA NAA QUALITATIVE Positive (Negative)
== END ==
LOC: M LAB REF 12:28
DX: E11.65 Type 2 diabetes mellitus with hyperglycemia (principal); B18.2 Chronic viral hepatitis C

== ENCOUNTER → 2017-12-05 | Outpatient (REF) | payer MEDICAID | LOC: M LAB REF 12:58 | DX: B18.2 Chronic viral hepatitis C (principal) ==

== ENCOUNTER → 2019-10-30 | Emergency (ER) | payer MEDICAID ==
[~2019-10-30] MED LIST changes: +ALBU17IN INH; +LEXA1TAB2 PO; +NICO21PAT TD; +NORV5TAB PO; +PHENobarbitaL 30 MG TAB As Ordered ONE; +PRINIVIL PO; +SUBO8MIS SL
== END | disposition home or self-care (01) ==
LOC: M ED 23:26
DX: F11.10 Opioid abuse, uncomplicated (principal); Z88.2 Allergy status to sulfonamides

== ENCOUNTER 2020-10-13 18:00 | Emergency (ER) | payer MEDICAID, OTHER, SELFPAY ==
[~2020-10-13] VITALS: Ht 177.8 cm; Wt 115.7 kg
[~2020-10-13 18:00] MED LIST changes: -PHENobarbitaL 30 MG TAB As Ordered ONE
[2020-10-13 21:09] LABS: BASO % 0.1 % (0.0-1.0); HEMATOCRIT 42.5 % (42.0-52.0); HEMOGLOBIN 14.8 g/dl (13.5-17.5); LYMPH # 2.7 10^3/uL (1.5-5.0); LYMPH % 16.3 % (24.0-44.0); MEAN CORPUSCULAR HEMOGLOBIN 29.5 pg (27.0-33.0); MEAN CORPUSCULAR HGB CONC 34.8 g/dl (32.0-36.5); MEAN CORPUSCULAR VOLUME 84.7 fl (80.0-96.0); MONO # 1.2 10^3/uL (0.0-0.8); MONO % 7.5 % (2.0-8.0); NEUTROPHILS # 12.4 10^3/uL (1.5-8.5); NEUTROPHILS % 75.6 % (36.0-66.0); PLATELET COUNT, AUTOMATED 281 10^3/uL (150-450); RED BLOOD COUNT 5.02 10^6/uL (4.30-6.10); WHITE BLOOD COUNT 16.5 10^3/uL (4.0-10.0)
[2020-10-13 21:25] LABS: ACETONE/KETONE 5.54 MG/DL (<2.81); ALBUMIN 4.2 GM/DL (3.2-5.2); BILIRUBIN,DIRECT 0.3 MG/DL (0.0-0.2); BILIRUBIN,TOTAL 1.1 MG/DL (0.2-1.0); TOTAL PROTEIN 8.1 GM/DL (6.4-8.2)
[2020-10-13] MEDS ORDERED: KETOROLAC 30 MG/ML 1ML VIAL IV ONE (22:10)
[2020-10-13] MEDS ORDERED: ONDANSETRON 4MG/2ML VIAL IV ONE (22:10)
[2020-10-13] MEDS ORDERED: HumuLIN R (REGULAR) INSULIN (NovoLIN R) **100U/ML** PER UNIT IV STA (22:12)
[2020-10-13] MEDS ORDERED: ISOVUE-370 76% 100ML VIAL As Ordered ONE (22:39)
[2020-10-13 22:41] LABS: VENOUS BASE EXCESS 0.4 (-2.0-2.0); VENOUS O2 SATURATION 98.6 % (60.0-80.0); VENOUS PARTIAL PRESSURE CO2 35.8 mmHg (38.0-50.0); VENOUS PARTIAL PRESSURE O2 112.8 mmHg (30.0-50.0); VENOUS PH 7.445 UNITS (7.330-7.430); VENOUS STANDARD HCO3 24.9 MEQ/L; VENOUS TOTAL CO2 25.1 MEQ/L (24.0-28.0)
[2020-10-14] MEDS ORDERED: METF500T13 PO (01:34)
[2020-10-14] MEDS ORDERED: FLOM0.4C39 PO (01:34)
[2020-10-14] MEDS ORDERED: metFORMIN (GLUCOPHAGE) 500MG TAB PO ONE (01:35)
[2020-10-14] MEDS ORDERED: TAMSULOSIN 0.4 MG CAP PO ONE (01:35)
[2020-10-14 02:03] VITALS: BP 137/83
[2020-10-15] MEDS ORDERED: FLOM0.4C39 PO (15:24)
[2020-10-15] MEDS ORDERED: METF500T13 PO (15:24)
[2020-12-05] MEDS ORDERED: INSUH10VL SC (09:09)
[2020-12-05] MEDS ORDERED: LISI20TA33 PO (09:09)
[2020-12-05] MEDS ORDERED: AMLO10TA PO (09:09)
[2020-12-12] MEDS ORDERED: LEVO500T4 PO (12:21)
== END 2020-10-14 02:07 | disposition home or self-care (01) ==
LOC: M ED 18:00
DX: E11.9 Type 2 diabetes mellitus without complications (principal); N40.0 Benign prostatic hyperplasia without lower urinary tract symptoms; I10 Essential (primary) hypertension; Z79.899 Other long term (current) drug therapy; Z79.84 Long term (current) use of oral hypoglycemic drugs; F15.10 Other stimulant abuse, uncomplicated; F17.210 Nicotine dependence, cigarettes, uncomplicated
CPT/HCPCS: 74177; 80047; 80076; 81001; 82010; 82803; 83690; 83930; 85025; 96374; 96375; 99284; J1885; J2405; Q9967

== ENCOUNTER 2020-10-15 10:36 | Emergency (ER) | payer OTHER ==
[~2020-10-15] VITALS: Ht 190.5 cm; Wt 115.6 kg
[~2020-10-15 10:36] MED LIST changes: +FLOM0.4C39 PO; +METF500T13 PO
[2020-10-15] MEDS ORDERED: KETOROLAC 30 MG/ML 1ML VIAL IV ONE (11:35)
[2020-10-15] MEDS ORDERED: ONDANSETRON 4MG/2ML VIAL IV ONE (11:40)
[2020-10-15] MEDS ORDERED: MORPHINE 4 MG/ML 1ML VIAL/SYRINGE (J2270) IV PRN (12:40)
[2020-10-15] MEDS ORDERED: NS 1,000 ML IV SCH (12:40)
--- NOTE | 2020-10-15 13:59 | REP ---
INDICATION: FLANK PAIN. COMPARISON: None. TECHNIQUE: Multiple projection ultrasound images were obtained of both kidneys including color Doppler. FINDINGS: The left kidney measures 14.0 x 6.1 x 5.4 cm. There is mild pelviectasis. The right kidney measures 14.0 x 6.1 x 5.5 cm. The renal cortical echogenicity is normal. There is no hydronephrosis. The prevoid bladder measures 15.8 x 11.9 x 10.1 cm. No postvoid images were obtained. The bladder wall does not appear thickened. There are no filling defects in the bladder. IMPRESSION: 1. Mild left pelviectasis, likely a benign extrarenal renal pelvis. 2. The right kidney is unremarkable. 3. The pre void bladder appears unremarkable. <Electronically signed by Keron Maradiaga > 10/15/20 [id number]
--- NOTE | 2020-10-15 14:08 | REP ---
INDICATION: R/O ASCITES. COMPARISON: None. TECHNIQUE: Evaluation of the 4 quadrants of the abdomen was performed for possible ascites. FINDINGS: There is no evidence of ascites. IMPRESSION: No evidence of ascites. <Electronically signed by Keron Maradiaga > 10/15/20 [id number]
[2020-10-15 14:19] LABS: GC DNA AMPLIFICATION NEGATIVE (NEGATIVE)
--- NOTE | 2020-10-15 14:30 | REP ---
INDICATION: LOW BACK PAIN. COMPARISON: None. TECHNIQUE: Contiguous axial projection images were obtained through the lumbar spine. 2D sagittal and coronal reconstructions were performed. FINDINGS: There are Schmorl's nodes at the visualized vertebral endplates of T11, T12, L1, L2, L3 and the superior endplate of L4. There is congenital central canal stenosis, L2-3 through L5-S1. There is degenerative disc disease, L2-3 through L5-S1 with narrowing of the intervertebral disc spaces and marginal osteophytes. There are partially calcified disc protrusions at L2-3, L4-5 and L5-S1. There is 3 mm of degenerative retrolisthesis of L4 on L5. There are no compression fractures. There is a horseshoe kidney. There is mild dilatation of the ureters in the pelvicaliceal system of both renal moieties. The bladder appears distended. The ureters are incompletely imaged on the CT exam, however the knowledge analyst image, which includes the pelvis, does not demonstrate distal ureteral stones. There is calcific vascular disease of the abdominal aorta. IMPRESSION: 1. There is congenital stenosis of the spinal canal L2-3 through L5-S1. 2. There is superimposed degenerative disc disease, L2-3 through L5-S1. 3. There is spondylosis with degenerative grade 1 retrolisthesis, L4 on L5. 4. Multiple Schmorl's nodes are identified. 5. There is a horseshoe kidney and there is mild hydronephrosis of both renal moieties without evidence of stones. However, the bladder is distended suggesting bladder outlet obstruction, which can be a cause of hydronephrosis. <Electronically signed by Keron Maradiaga > 10/15/20 [id number]
[2020-10-15] MEDS ORDERED: FLOM0.4C39 PO (15:24)
[2020-10-15] MEDS ORDERED: METF500T13 PO (15:24)
[2020-10-15] MEDS ORDERED: HOME MED LIST COMPLETE! XX SCH (15:25)
[2020-10-15 15:36] VITALS: BP 122/63
--- NOTE | 2020-10-15 15:48 | CR.PDOC ---
General Date of Consultation: Oct 15, 2020 Consultation Chief complaint: Presented to the emergency room with complaints of abdominal pain Hospitalist service called for evaluation of hyponatremia History of present illness: Patient is a 49-year-old male with past medical history of recently diagnosed NIDDM2 and BPH on 10/13 in the ER. Patient presented to the emergency room today with complaints of abdominal pain and decreased urination. Patient describes abdominal pain is occurring right below his umbilicus radiating to his back, described as stabbing continuous 10 out of 10 pain has had significant relief and essentially resolution after Hong catheter has been placed in the ER. Patient had reported associated nausea, vomiting that has since resolved. He denies any chest pain, shortness of breath, palpitations. Denies any recent fevers or chills. Reports that his weight has been consistent. However, his appetite was poor until currently. Now he notes that he is hungry. Of note, patient was in the ER on 10/13 where he was noting abdominal discomfort was also found to have elevated glucose levels. Patient was given metformin 500mg BID, and Tamsulosin with instructions to follow-up with primary care provider. Hospitalist service was called for evaluation after his sodium levels were noted to be 128. Past Medical History: NIDDM2 (Dx 10/13/2020) BPH (Dx 10/13/2020) HTN (currently not on any medications. 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 Review of Systems: 10 point review of systems complete, all negative otherwise stated in HPI Physical exam: - Vitals: BP [117/64], HR [77], RR [18], Sat [97%RA], Temp [98.2F] - General: Lying in bed, Speaking in full sentences, AAOx3 - HEENT: NC, AT - CVS: RRR, +S1S2 - Lungs: Fair air entry bilaterally, No appreciable wheezing / rales / rhonchi - Abdomen: Soft, Non-distended, Non-tender, Hong catheter present - Extremities: No lower extremity edema, No calf tenderness - Neuro: No focal motor or sensory deficit - Skin: No visible rashes Labs: See below Imaging: Abdomen US 10/15: No evidence of ascites. CT lumbar spine 10/15: 1. There is congenital stenosis of the spinal canal L2-3 through L5-S1. 2. There is superimposed degenerative disc disease, L2-3 through L5-S1. 3. There is spondylosis with degenerative grade 1 retrolisthesis, L4 on L5. 4. Multiple Schmorl's nodes are identified. 5. There is a horseshoe kidney and there is mild hydronephrosis of both renal moieties without evidence of stones. However, the bladder is distended suggesting bladder outlet obstruction, which can be a cause of hydronephrosis. Renal US 10/15: 1. Mild left pelviectasis, likely a benign extrarenal renal pelvis. 2. The right kidney is unremarkable. 3. The pre void bladder appears unremarkable. EKG: See below Assessment and Plan: Hyponatremia - 2/2 pseudo-hyponatremia - 2/2 hyperglycemia - I was called to evaluate patient for hyponatremia - Corrected sodium for glucose of 494 is 137 - No additional interventions for sodium are required; will continue with better control for DM2 Hyperglycemia - likely 2/2 poorly controlled DM2 - Currently patient does not have any evidence of DKA; no significant anion gap - Currently remains asymptomatic - Has been started on Metformin 500 BID on Friday night (10/13) - Will need close follow up with PCP for adjustment of diabetic medications; likely increase dose of Metformin once tolerated initially - ER has arranged for outpatient follow up with PCP (Likely at resident clinic) s/p Abdominal pain - likely 2/2 urinary retention - possibly 2/2 BPH - Patient has had essentially full resolution of abdominal pain and nausea after Hong catheter was placed - UA without any evidence of infection - c/w Tamsulosin - ER has contacted urology administration clerk who have recommended outpatient follow up and continuation of Hong on discharge Prior history of HTN - BP currently is well controlled - Currently off of Amlodipine / Lisinopril for 1 year - Will have outpatient PCP follow up Chronic back pain - 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 Vital Signs/I&O Vital Signs Date Time Temp Pulse Resp B/P (MAP) Pulse Ox O2 Delivery O2 Flow Rate FiO2 10/15/20 15:36 98.3 78 20 122/63 (82) 98 Room Air Laboratory Data Labs 24H Laboratory Tests 2 10/15/20 11:04: Chlamydia trachomatis DNA (PHANI) NEGATIVE, Neisseria gonorrhoeae DNA (PHANI) NEGATIVE 10/15/20 11:05: Urine Color STRAW, Urine Appearance CLEAR, Urine pH 5.0, Urine Specific Ranger 1.025, Urine Protein NEGATIVE, Urine Glucose (UA) 3+H, Urine Ketones TRACEH, Urine Blood 1+H, Urine Nitrite NEGATIVE, Urine Bilirubin NEGATIVE, Urine Urobilinogen 0.2, Urine Leukocyte Esterase NEGATIVE, Urine WBC (Auto) 1, Urine RBC (Auto) 1, Urine Hyaline Casts (Auto) 0, Urine Bacteria (Auto) NEGATIVE, Urine Squamous Epithelial Cells 0, Urine Mucus (Auto) SMALL, Urine Sperm (Auto) 10/15/20 11:32: POC Glucose (Misc Panel) 494H, POC Sodium (Misc Panel) 128L, POC Potassium (Misc Panel) 3.8, POC Chloride (Misc Panel) 89L, POC Total CO2 (Misc Panel) 24.0, POC Blood Urea Nitrogen (Misc Panel 25, POC Ionized Calcium (Misc Panel) 4.2L, POC Creatinine (Misc Panel) 1.0, POC Hematocrit (Misc Panel) 45.0 Allergies Coded Allergies: No Known Allergies (Verified , 09/20/02) Home Medications Scheduled Metformin HCl (Metformin HCl) 500 Mg Tablet, 500 MG PO BID, (Reported) Tamsulosin HCl (Flomax) 0.4 Mg Capsule, 0.4 MG PO QHS, (Reported) SIDNEY COTTER MD Oct 15, 2020 15:48
--- NOTE | 2020-10-16 06:13 | ED PDOC ---
Post-Departure Follow-Up dr ile[facility] faxed formal report of ct ls spine for fu Leeanna Ruano MD Oct 16, 2020 06:13
== END 2020-10-15 15:48 | disposition home or self-care (01) ==
LOC: M ED 10:36
DX: N40.1 Benign prostatic hyperplasia with lower urinary tract symptoms (principal); R33.9 Retention of urine, unspecified; E87.1 Hypo-osmolality and hyponatremia; E11.9 Type 2 diabetes mellitus without complications; E83.51 Hypocalcemia; M51.9 Unspecified thoracic, thoracolumbar and lumbosacral intervertebral disc disorder; J44.9 Chronic obstructive pulmonary disease, unspecified; F33.9 Major depressive disorder, recurrent, unspecified; Z79.84 Long term (current) use of oral hypoglycemic drugs; F17.210 Nicotine dependence, cigarettes, uncomplicated
CPT/HCPCS: 36415; 51702; 72131; 76705; 76775; 80047; 81001; 87491; 87591; 96361; 96374; 96375; 99284; J1885; J2270; J2405

== ENCOUNTER → 2020-10-19 | Outpatient (CLI) | payer OTHER | LOC: M PLALAB 10:03 | PROVIDERS: ATTEND Nurse Practitioner Family | DX: Z12.5 Encounter for screening for malignant neoplasm of prostate (principal) ==

== ENCOUNTER → 2020-12-06 | Outpatient (CLI) | payer OTHER ==
[~2020-12-06] MED LIST changes: +AMLO10TA PO; +INSUH10VL SC; +LISI20TA33 PO
== END ==
LOC: M LABSMTC 11:40
PROVIDERS: ATTEND Anesthesiology
DX: Z01.812 Encounter for preprocedural laboratory examination (principal); Z20.822 Contact with and (suspected) exposure to COVID-19

== ENCOUNTER → 2020-12-06 | Outpatient (CLI) | payer OTHER ==
--- NOTE | 2020-12-06 13:49 | ECGEPIP ---
[facility] Test Date: 2020-12-06 Pat Name: MEI FERRIS Department: Room: - Gender: Male Surgical First Assistant: RADHA : 1970 Requested By: Ean Gan Order Number: [id number] Reading MD: Yoselin Victoria Measurements Intervals [place] Rate: 81 P: 64 IA: 146 QRS: -23 QRSD: 100 T: 56 QT: 382 QTc: 443 Interpretive Statements Normal sinus rhythm LEFT AXIS DEVIATION STTW ABN STABLE C/W 05/14/16 Electronically Signed on 12-06-2020 13:48:52 EDT by Yoselin Victoria
== END ==
LOC: M EKG 12:40
PROVIDERS: ATTEND Anesthesiology
DX: Z01.818 Encounter for other preprocedural examination (principal); R94.31 Abnormal electrocardiogram [ECG] [EKG]

== ENCOUNTER → 2020-12-07 | Outpatient (CLI) | payer OTHER ==
[~2020-12-07] MED LIST changes: +BASA100I SC
[2020-12-07 15:21] LABS: HEMATOCRIT 47.5 % (42.0-52.0); HEMOGLOBIN 15.6 g/dl (13.5-17.5); MEAN CORPUSCULAR HEMOGLOBIN 29.2 pg (27.0-33.0); MEAN CORPUSCULAR HGB CONC 32.8 g/dl (32.0-36.5); MEAN CORPUSCULAR VOLUME 88.8 fl (80.0-96.0); PLATELET COUNT, AUTOMATED 274 10^3/uL (150-450); RED BLOOD COUNT 5.35 10^6/uL (4.30-6.10); WHITE BLOOD COUNT 10.7 10^3/uL (4.0-10.0)
--- NOTE | 2020-12-07 15:45 | REP ---
INDICATION: RETENTION OF URINE *LABS 1ST, XRY 2ND*. COMPARISON: Comparison study August 15, 2015. TECHNIQUE: Two views.. FINDINGS: The lungs are well inflated and free of infiltrate. The pleural angles are sharp. The heart size is normal. Pulmonary vasculature is not increased. No significant bony abnormality is seen. Patient is status post ventral discectomy and fusion plating in the cervical spine. There are mild degenerative disc spurs in the thoracic spine. IMPRESSION: No active cardiopulmonary disease. <Electronically signed by Cosmo Mccurdy > 12/07/20 0070
[2020-12-07 15:47] LABS: ALBUMIN 3.9 GM/DL (3.2-5.2); ALT/SGPT 83 U/L (12-78); BILIRUBIN,TOTAL 0.5 MG/DL (0.2-1.0); BLOOD UREA NITROGEN 16 MG/DL (7-18); CALCIUM LEVEL 9.7 MG/DL (8.5-10.1); CARBON DIOXIDE LEVEL 28 MEQ/L (21-32); CHLORIDE LEVEL 104 MEQ/L (98-107); CREATININE FOR GFR 1.12 MG/DL (0.70-1.30); GLOMERULAR FILTRATION RATE > 60.0 (>56); GLUCOSE, FASTING 255 MG/DL (70-100); POTASSIUM SERUM 4.4 MEQ/L (3.5-5.1); SODIUM LEVEL 136 MEQ/L (136-145); TOTAL PROTEIN 7.6 GM/DL (6.4-8.2)
== END ==
LOC: M LAB 14:00
PROVIDERS: ATTEND Urology
DX: R33.9 Retention of urine, unspecified (principal)

== ENCOUNTER 2020-12-11 06:36 | Day surgery (SDC) | payer OTHER ==
[~2020-12-11] VITALS: Ht 185.4 cm; Wt 117.7 kg
[2020-12-11] VITALS (7 sets, daily range): BP systolic 117–130; BP diastolic 63–88
[~2020-12-11 06:36] MED LIST changes: -BASA100I SC; +CIPROFLOXACIN 400 MG in IV 1 EA IV ONE; +LR 1,000 ML IV ONE
[2020-12-11] MEDS ORDERED: ONDANSETRON 4MG/2ML VIAL As Ordered ONE (07:05)
[2020-12-11] MEDS ORDERED: MIDAZOLAM INJ 2MG/2ML VIAL (J2250 PER 1MG) As Ordered ONE (07:05)
[2020-12-11] MEDS ORDERED: LIDOCAINE 2% 100MG/5ML SDV (FOR ANES.) As Ordered ONE (07:06)
[2020-12-11] MEDS ORDERED: dexameTHASONE 4 MG/ML 1ML VIAL (J1100 PER 1MG) As Ordered ONE (07:06)
[2020-12-11] MEDS ORDERED: propofoL 200 MG/20 ML VIAL As Ordered ONE ×2 (07:06→10:00)
[2020-12-11] MEDS ORDERED: HumaLOG INSULIN (NovoLOG) PER UNIT SC ONE (07:45)
[2020-12-11] MEDS ORDERED: cefTRIAXone SOD 1GM VIAL (J0696 PER 250MG) As Ordered ONE (09:11)
[2020-12-11] MEDS ORDERED: ACETAMINOPHEN 1000MG 100ML IV BTL (OFIRMEV) (J0131 PER 10MG) As Ordered ONE (09:12)
[2020-12-11] MEDS ORDERED: fentaNYL 100 MCG/2 ML INJECTION (J3010) As Ordered ONE (09:13)
[2020-12-11] MEDS ORDERED: ROCURONIUM BROMIDE 50 MG/5 ML VIAL As Ordered ONE (10:04)
[2020-12-11] MEDS ORDERED: NORCO, ANEXSIA 5/325MG TABLET (HYDROcodone/ACETAMINOPHEN) PO PRN (10:15)
--- NOTE | 2020-12-11 10:23 | ROOPDOC ---
[facility] Report Of Operation Report of Operation DATE OF PROCEDURE: 12/11/20 PREPROCEDURE DIAGNOSES: [bph, retention]. POSTPROCEDURE DIAGNOSES: [same]. PROCEDURE PERFORMED: [TURP, complex catheter placement]. SURGEON: [inder gil], SHOE CASER: [none], MD ANESTHESIA: [general]. ESTIMATED BLOOD LOSS: Approximately [5] mL. COMPLICATIONS: [none]. REMARKS: [50yo wm with retention. Bph on cystoscopy. Turp arranged. No guarantees given as to success of procedure in terms of ability to void after. New dx of diabetes. Informed consent obtained. Risks discussed and include infection, pain, bleeding, scarring, injury to gu tract, retrograde ejaculation, retention, incontinence and others.]. FINDINGS: SPECIMENS REMOVED: [turp chips] PROCEDURE NOTE: . DESCRIPTION OF PROCEDURE: [I met with the patient in the preop area before surg sonal and surgery was once again discussed. No guarantees given. I explained that he might not be able to void after the TURP. Questions were answered. Patient wished to proceed. Patient brought to the operating room. While on the table in the supine position general anesthesia was secured without difficulty. Positioning was then dorsolithotomy. Well-padded. Patient presented with a catheter that was removed. Surgery was done under antimicrobial coverage based on urine culture results. Prepping and draping were performed in the usual sterile fashion. A timeout was performed. The resectoscope sheath was advanced into the bladder with help from its visual obturator. The resectoscope was then assembled. Landmarks were identified including ureteral orifices, bladder neck, verumontanum and sphincter. A TURP was performed. I concentrated mostly on the right lateral lobe and the floor the prostate. Some of the left lateral lobe was taken down. Care was taken not to resect proximal to the verumontanum. TURP chips were evacuated from the bladder and handed off. A button was used for hemostasis. Once satisfied that no more hemostasis was possible I attempted to place a three-way catheter. I was unable to place it however. It seemed to get hung up in the prostate. I attempted to place a coude two way catheter and again was unsuccessful. I even tried to pass a three-way catheter over a wire. Ultimately I was able to place a Councill catheter over a wire. I had hoped to place a three-way but again was unsuccessful. I even tried a stylette. Once the catheter was in place the bladder was copiously irrigated. Drainage was p ink. This ended surgery. Patient tolerated everything well left the room in satisfactory condition.]. TITI GIL MD Dec 11, 2020 10:23
[2020-12-11] MEDS ORDERED: GLUCAGON INJ 1MG VIAL SC PRN (10:25)
[2020-12-11] MEDS ORDERED: DEXTROSE 50% 50 ML SYRINGE IV PRN (10:25)
[2020-12-11] MEDS ORDERED: GLUCOSE 4GM CHEW TABLET PO PRN (10:25)
[2020-12-11] MEDS ORDERED: BASA100I SC (10:30)
[2020-12-11] MEDS ORDERED: LR 1,000 ML IV SCH (10:45)
[2020-12-11] MEDS ORDERED: METOCLOPRAMIDE INJ 10MG/2ML VIAL (J2765 PER 1) IV PRN (10:45)
[2020-12-11] MEDS ORDERED: ONDANSETRON 4MG/2ML VIAL IV PRN (10:45)
[2020-12-11] MEDS ORDERED: fentaNYL 100 MCG/2 ML INJECTION (J3010) IV PRN (10:45)
[2020-12-11] MEDS ORDERED: PERCOCET 5MG/325MG TAB PO PRN (10:45)
[2020-12-11] MEDS ORDERED: ceFAZolin SOD 1 GM in D5W MINI-BAG PLUS 50 ML IV ONE (10:50)
[2020-12-11] MEDS ORDERED: cefTRIAXone SOD 1 GM in D5W MINI-BAG PLUS 50 ML IV SCH (11:00)
[2020-12-11] MEDS ORDERED: oxyCODONE 5MG TAB PO PRN (11:35)
[2020-12-11] MEDS: metFORMIN (GLUCOPHAGE) 500MG TAB PO SCH ×2 (14:19→17:29)
[2020-12-11] MEDS: NS 0.45% 1,000 ML IV SCH ×3 (14:33→20:09)
[2020-12-11] MEDS: TAMSULOSIN 0.4 MG CAP PO SCH (14:34)
[2020-12-11] MEDS: HumaLOG INSULIN (NovoLOG) PER UNIT SC SCH ×2 (14:34→17:30)
[2020-12-11] MEDS: oxyBUTYnin 5 MG TAB PO SCH ×2 (14:34→20:09)
[2020-12-11] MEDS: CIPROFLOXACIN 400 MG in IV 1 EA IV SCH (20:08)
[2020-12-11] MEDS ORDERED: HumaLOG INSULIN (NovoLOG) PER UNIT SC SCH (21:00)
[2020-12-12 02:00] VITALS: BP 117/68
[2020-12-12] MEDS: NS 0.45% 1,000 ML IV SCH (03:55)
[2020-12-12 05:55] LABS: HEMATOCRIT 37.1 % (42.0-52.0); HEMOGLOBIN 12.3 g/dl (13.5-17.5); MEAN CORPUSCULAR HEMOGLOBIN 29.1 pg (27.0-33.0); MEAN CORPUSCULAR HGB CONC 33.2 g/dl (32.0-36.5); MEAN CORPUSCULAR VOLUME 87.9 fl (80.0-96.0); PLATELET COUNT, AUTOMATED 237 10^3/uL (150-450); RED BLOOD COUNT 4.22 10^6/uL (4.30-6.10); WHITE BLOOD COUNT 12.8 10^3/uL (4.0-10.0)
[2020-12-12 06:00] VITALS: BP 115/67
[2020-12-12 06:22] LABS: ALT/SGPT 52 U/L (12-78); BILIRUBIN,TOTAL 0.4 MG/DL (0.2-1.0); BLOOD UREA NITROGEN 13 MG/DL (7-18); CALCIUM LEVEL 8.2 MG/DL (8.5-10.1); CARBON DIOXIDE LEVEL 28 MEQ/L (21-32); CHLORIDE LEVEL 106 MEQ/L (98-107); CREATININE FOR GFR 0.82 MG/DL (0.70-1.30); GLOMERULAR FILTRATION RATE > 60.0 (>56); GLUCOSE, FASTING 200 MG/DL (70-100); POTASSIUM SERUM 4.3 MEQ/L (3.5-5.1); SODIUM LEVEL 138 MEQ/L (136-145); TOTAL PROTEIN 5.9 GM/DL (6.4-8.2)
--- NOTE | 2020-12-12 07:36 | IPNPDOC ---
Date Seen The patient was seen on 12/12/20. Progress Note SUBJECTIVE: Patient is a -year-old [RACE] [GENDER] with pt seen and examined looks comfortable lying in bed urine pink belly soft heart reg avss labs noted catheter removed for voiding trial home today in all likelihood will stop oxybutynin decrease ivf VS, I&O, 24H, Fishbone Vital Signs/I&O Vital Signs Date Time Temp Pulse Resp B/P (MAP) Pulse Ox O2 Delivery O2 Flow Rate FiO2 12/12/20 06:00 97.5 68 18 115/67 (83) 93 Room Air 12/11/20 10:20 10.0 I&O- Last 24 Hours up to 6 AM 12/12/20 06:00 Intake Total 5020 ml Output Total 3950 ml Balance 1070 ml Laboratory Data 24H LABS Laboratory Tests 2 12/11/20 10:25: Bedside Glucose (Misc Panel) 149H 12/11/20 17:05: Bedside Glucose (Misc Panel) 277H 12/11/20 19:57: Bedside Glucose (Misc Panel) 288H 12/12/20 05:29: Nucleated Red Blood Cells % (auto) 0.0, Anion Gap 4L, Glomerular Filtration Rate > 60.0, Calcium Level 8.2L, Total Bilirubin 0.4, Aspartate Amino Transf (AST/SGOT) 16, Alanine Aminotransferase (ALT/SGPT) 52, Alkaline Phosphatase 58, Total Protein 5.9L, Albumin 3.0L, Albumin/Globulin Ratio 1.0 CBC/BMP Laboratory Tests 12/12/20 05:29 TITI GIL MD Dec 12, 2020 07:36
[2020-12-12] MEDS: metFORMIN (GLUCOPHAGE) 500MG TAB PO SCH (08:29)
[2020-12-12] MEDS: TAMSULOSIN 0.4 MG CAP PO SCH (08:29)
[2020-12-12 08:30] VITALS: BP 139/73
[2020-12-12] MEDS: HumaLOG INSULIN (NovoLOG) PER UNIT SC SCH ×2 (08:30→12:50)
[2020-12-12] MEDS: CIPROFLOXACIN 400 MG in IV 1 EA IV SCH (08:30)
[2020-12-12] MEDS ORDERED: cefTRIAXone SOD 1 GM in D5W MINI-BAG PLUS 50 ML IV SCH (10:00)
[2020-12-12] MEDS ORDERED: LEVO500T3 PO (12:21)
--- NOTE | 2020-12-12 12:27 | DS.PDOC ---
Discharge Summary General Date of Admission 12/11/20 Date of Discharge 12/12/20 Attending Physician: TITI GIL MD Discharge Summary PROCEDURES PERFORMED DURING STAY: [TURP]. ADMITTING DIAGNOSES: 1. [BPH, RETENTION]. DISCHARGE DIAGNOSES: 1. [SAME] COMPLICATIONS/CHIEF COMPLAINT: Benign Prostatic Hyperplasia, Retention. HISTORY OF PRESENT ILLNESS: [RETENTION. CATHETER. CYSTOSCOPY DEMONSTRATED BPH. TURP ARRANGED.]. HOSPITAL COURSE: [TURP WITHOUT EVENT. CATHETER REMOVED POD#1. VOIDED.]. DISCHARGE MEDICATIONS: Please see below. ONLY NEW MEDICATION IS LEVAQUIN ONCE DAILY FOR 10 DAYS. SENT TO PHARMACY ALREADY. ALLERGIES: Please see below. PHYSICAL EXAMINATION ON DISCHARGE: AVSS ALERT APPROPRIATE BELLY SOFT HEART REGULAR CHEST CLEAR URINE PINK BEFORE REMOVING CATHETER LABORATORY DATA: Please see below. IMAGING: PROGNOSIS: ACTIVITY: [NOTHING STRENUOUS FOR COUPLE WEEKS]. DIET: [ BEFORE] DISCHARGE PLAN: DISPOSITION: APPT 12/19/20 AT 8AM DISCHARGE INSTRUCTIONS: 1. [NOTHING STRENUOUS COUPLE WEEKS FLUIDS EXPECT BLOOD IN URINE AND BURNING RESUME HOME MEDS INCLUDING TAMSULOSIN NEW MEDICATION (LEVAQUIN) SENT TO PT'S PHARMACY CALL OFFICE WITH PROBLEMS NO BLOOD THINNERS SUCH ASPIRIN OR IBUPROFEN FOR 1WK]. ITEMS TO FOLLOWUP ON ON OUTPATIENT: 1. . DISCHARGE CONDITION: [Stable]. TIME SPENT ON DISCHARGE: [30] minutes. Vital Signs/I&Os Vital Signs Date Time Temp Pulse Resp B/P (MAP) Pulse Ox O2 Delivery O2 Flow Rate FiO2 12/12/20 08:30 71 139/73 12/12/20 06:00 97.5 18 93 Room Air 12/11/20 10:20 10.0 I&O- Last 24 Hours up to 6 AM 12/12/20 06:00 Intake Total 5380 ml Output Total 4275 ml Balance 1105 ml Laboratory Data Labs 24H Laboratory Tests 2 12/11/20 17:05: Bedside Glucose (Misc Panel) 277H 12/11/20 19:57: Bedside Glucose (Misc Panel) 288H 12/12/20 05:29: Nucleated Red Blood Cells % (auto) 0.0, Anion Gap 4L, Glomerular Filtration Rate > 60.0, Calcium Level 8.2L, Total Bilirubin 0.4, Aspartate Amino Transf (AST/SGOT) 16, Alanine Aminotransferase (ALT/SGPT) 52, Alkaline Phosphatase 58, Total Protein 5.9L, Albumin 3.0L, Albumin/Globulin Ratio 1.0 12/12/20 12:01: Bedside Glucose (Misc Panel) 254H CBC/BMP Laboratory Tests 12/12/20 05:29 FSBS Laboratory Tests Test 12/11/20 17:05 12/11/20 19:57 12/12/20 12:01 Range/Units Bedside Glucose (Misc Panel) 277 288 254 70-105 MG/DL Discharge Medications Scheduled Amlodipine Besylate (Norvasc) 10 Mg Tablet, 10 MG PO DAILY, (Reported) Insulin Glargine,Hum.rec.anlog (Basaglar Kwikpen U-100) 100 Unit/1 Ml Insuln.pen, 10 UNIT SC DAILY, (Reported) Levofloxacin (Levofloxacin) 500 Mg Tablet, 1 TAB PO DAILY Lisinopril (Lisinopril) 20 Mg Tablet, 20 MG PO DAILY, (Reported) Metformin HCl (Metformin HCl) 500 Mg Tablet, 500 MG PO BID, (Reported) Tamsulosin HCl (Flomax) 0.4 Mg Capsule, 0.4 MG PO QHS, (Reported) Allergies Coded Allergies: No Known Allergies (Verified , 12/05/20) TITI GIL MD Dec 12, 2020 12:27
== END 2020-12-12 13:15 | disposition home or self-care (01) ==
LOC: M SDC 06:36 → M MSPAV 14:09 → M SDC 12-12 13:15
PROVIDERS: ATTEND Urology
DX: N40.0 Benign prostatic hyperplasia without lower urinary tract symptoms (principal); R33.9 Retention of urine, unspecified; E11.65 Type 2 diabetes mellitus with hyperglycemia; B18.2 Chronic viral hepatitis C; I10 Essential (primary) hypertension; F32.9 Major depressive disorder, single episode, unspecified; F41.9 Anxiety disorder, unspecified; J44.9 Chronic obstructive pulmonary disease, unspecified; F19.11 Other psychoactive substance abuse, in remission; Z21 Asymptomatic human immunodeficiency virus [HIV] infection status; B19.20 Unspecified viral hepatitis C without hepatic coma; Z79.899 Other long term (current) drug therapy; Z79.4 Long term (current) use of insulin; Z79.2 Long term (current) use of antibiotics
CPT/HCPCS: 36415; 52601; 80053; 85027; 88305; 96365; 96366; 96374; 96376; J0131; J0690; J0696; J0744; J1100; J2250; J2405; J3010

== ENCOUNTER 2021-04-14 13:29 | Emergency (ER) | payer OTHER ==
[~2021-04-14] VITALS: Ht 185.4 cm; Wt 120.4 kg
[~2021-04-14 13:29] MED LIST changes: +BASA100I SC; -CIPROFLOXACIN 400 MG in IV 1 EA IV ONE; +LEVO500T4 PO; -LR 1,000 ML IV ONE
[2021-04-14] MEDS ORDERED: AMLO1TAB25 (13:38)
[2021-04-14] MEDS ORDERED: TAMS1CAP17 (13:38)
[2021-04-14] MEDS ORDERED: LISI40TA4 (13:38)
[2021-04-14] MEDS ORDERED: METF10004 (13:38)
[2021-04-14] MEDS ORDERED: PRED20TA PO (14:22)
[2021-04-14] MEDS ORDERED: VALA1TAB5 PO (14:23)
[2021-04-14] MEDS ORDERED: POLYOPD OP (14:23)
[2021-04-14 15:45] VITALS: BP 129/74
== END 2021-04-14 16:06 | disposition home or self-care (01) ==
LOC: M ED 13:29
DX: G51.0 Bell's palsy (principal); E11.9 Type 2 diabetes mellitus without complications; Z79.84 Long term (current) use of oral hypoglycemic drugs; Z79.4 Long term (current) use of insulin; Z88.1 Allergy status to other antibiotic agents; Z88.2 Allergy status to sulfonamides

== ENCOUNTER 2024-06-09 19:45 | Emergency (ER) | payer OTHER ==
[~2024-06-09] VITALS: Ht 185.4 cm; Wt 102.7 kg
[~2024-06-09 19:45] MED LIST changes: +AMLO1TAB25; +ARTIDRO4 OP; +LEVO1TAB39 PO; -LEVO500T4 PO; +LISI40TA4; +METF10004; +PRED20TA PO; +TAMS1CAP17; +VALA1TAB5 PO
[2024-06-09 19:48] VITALS: BP 179/91; TEMP 96.3; O2SAT 100
[2024-06-09 21:08] LABS: BASO % 0.3 % (0.0-1.0); EOS # 0.2 10^3/uL (0.0-0.5); EOS % 2.4 % (0.0-3.0); HEMATOCRIT 42.6 % (42.0-52.0); HEMOGLOBIN 14.1 g/dl (13.5-17.5); LYMPH # 3.6 10^3/uL (1.5-5.0); LYMPH % 39.1 % (24.0-44.0); MEAN CORPUSCULAR HEMOGLOBIN 28.7 pg (27.0-33.0); MEAN CORPUSCULAR HGB CONC 33.1 g/dl (32.0-36.5); MEAN CORPUSCULAR VOLUME 86.8 fl (80.0-96.0); MONO # 0.7 10^3/uL (0.0-0.8); MONO % 7.7 % (2.0-8.0); NEUTROPHILS # 4.7 10^3/uL (1.5-8.5); NEUTROPHILS % 50.3 % (36.0-66.0); PLATELET COUNT, AUTOMATED 297 10^3/uL (150-450); RED BLOOD COUNT 4.91 10^6/uL (4.30-6.10); WHITE BLOOD COUNT 9.3 10^3/uL (4.0-10.0)
[2024-06-09 21:09] LABS: VENOUS BASE EXCESS 2.6 (-2.0-2.0); VENOUS HCO3 26.8 MMOL/L (23.0-27.0); VENOUS O2 SATURATION 97.8 % (60.0-80.0); VENOUS PARTIAL PRESSURE CO2 39.8 mmHg (38.0-50.0); VENOUS PARTIAL PRESSURE O2 77.9 mmHg (30.0-50.0); VENOUS PH 7.446 UNITS (7.330-7.430); VENOUS STANDARD HCO3 26.8 MMOL/L
[2024-06-09 21:35] LABS: HEMOGLOBIN A1c 10.4 % (4.0-6.0)
[2024-06-09 21:38] LABS: LIPASE 35 U/L (12-53)
[2024-06-09 21:40] LABS: ALBUMIN 3.6 G/DL (3.2-5.2); ALKALINE PHOSPHATASE 95 U/L (40-129); ALT/SGPT 80 U/L (7.0-40); AST/SGOT 34 U/L (<34); BILIRUBIN,DIRECT 0.1 MG/DL (<0.4); BILIRUBIN,TOTAL 0.3 MG/DL (0.3-1.2); TOTAL PROTEIN 7.2 G/DL (5.7-8.2)
[2024-06-09 23:33] LABS: BLOOD UREA NITROGEN 9 MG/DL (9-23); CALCIUM LEVEL 8.9 MG/DL (8.5-10.1); CARBON DIOXIDE LEVEL 30 MMOL/L (20-31); CHLORIDE LEVEL 100 MMOL/L (98-107); CREATININE FOR GFR 0.63 MG/DL (0.70-1.30); GLOMERULAR FILTRATION RATE > 60.0 (>56); GLUCOSE, FASTING 319 MG/DL (60-100); POTASSIUM SERUM 4.6 MMOL/L (3.5-5.1); SODIUM LEVEL 136 MMOL/L (136-145)
== END 2024-06-09 21:37 | disposition left against medical advice (07) ==
LOC: M ED 19:45
DX: Z53.21 Procedure and treatment not carried out due to patient leaving prior to being seen by health care provider (principal)